=== PATIENT | male | born 1940 ===

== ENCOUNTER 2018-02-27 07:35 | Day surgery (SDC) | payer OTHER ==
[2018-02-27] MEDS ORDERED: Lactated Ringer's 500 ML IV ONE (07:48)
[2018-02-27 08:08] VITALS: RESP 16
[2018-02-27] MEDS ORDERED: Propofol 10 mg/ml Inj (20 ML) ONE (08:50)
[2018-02-27 09:23] VITALS: TEMP 97; O2SAT 100
[2018-02-27 09:46] VITALS: BP 135/67; PULSE 86
== END 2018-02-27 09:57 | disposition home or self-care (01) ==
LOC: H.ENDO 07:35
PROVIDERS: ATTEND Internal Medicine Gastroenterology
DX: Z12.11 Encounter for screening for malignant neoplasm of colon (principal); K64.8 Other hemorrhoids; K57.30 Diverticulosis of large intestine without perforation or abscess without bleeding
CPT/HCPCS: 45378; J2001; J2704; J7120